=== PATIENT | male | born 1985 | race Hispanic/Latino ===

== ENCOUNTER → 2018-09-26 | Outpatient (CLI) | payer BC ==
[~2018-09-26] MED LIST: IOPAMIDOL 370 MG/ML 200 ML INFUS..BTL INJ ONE; SODIUM CHLORIDE 0.9% 50ML 50 ML ONE
--- NOTE | 2018-09-26 10:19 | Diagnostic Imaging Report ---
EXAM: CT ABDOMEN AND PELVIS with IV CONTRAST DATE: 09/26/2018 8:06 AM Time stamp on Exam: 8:49 AM INDICATION: Abdominal pain COMPARISON: None TECHNIQUE: The abdomen and pelvis were scanned using a multidetector helical scanner. Coronal and sagittal reformations were obtained. Routine protocol performed. Low-dose technique was utilized. IV Contrast: 100 cc of Isovue-370 Oral Contrast: Water Radiation Dose: Total DLP 323.01 mGy*cm Estimated effective dose: DLP x 0.015 x size factor FINDINGS: LOWER THORAX: No consolidations LIVER: Decreased attenuation of the liver compared to the plain compatible with fatty infiltration. No mass identified. BILIARY: The gallbladder is unremarkable. No ductal dilatation. SPLEEN: No masses PANCREAS: No masses ADRENALS: No nodules KIDNEYS: Symmetric perfusion. No enhancing masses. No hydronephrosis. GI TRACT: No distention, wall thickening or evidence of obstruction. The appendix is normal. VESSELS: Unremarkable PERITONEUM/RETROPERITONEUM: Small fat-containing right inguinal hernia with mild inflammatory stranding. No bowel contents within the hernia sac. LYMPH NODES: No lymphadenopathy REPRODUCTIVE ORGANS: Unremarkable BLADDER: Unremarkable SOFT TISSUES: Unremarkable BONES: No suspicious bone lesions. IMPRESSION: 1. Fatty infiltration of the liver without mass. 2. Small fat-containing right inguinal hernia with minimal stranding density. Signed by: Dr. Derrick Duff DO on 09/26/2018 10:16 AM
== END ==
LOC: CT 07:43
PROVIDERS: ATTEND Family Medicine
DX: K40.90 Unilateral inguinal hernia, without obstruction or gangrene, not specified as recurrent (principal)
CPT/HCPCS: 74177; Q9967

== ENCOUNTER → 2018-10-12 | Day surgery (SDC) | payer BC ==
[2018-10-11 13:03] LABS: BASOPHILS % 0.5 % (0.0-1.0); EOSINOPHILS # (AUTO) 0.1 (0.0-0.4); EOSINOPHILS % 1.5 % (0.0-6.0); HEMOGLOBIN 14.7 g/dL (14.0-18.0); LYMPHOCYTES # (AUTO) 1.7 (1.0-3.2); LYMPHOCYTES % 28.4 % (18.0-39.1); MEAN CORPUSCULAR HEMOGLOBIN 30.4 pg (28-32); MEAN CORPUSCULAR VOLUME 86.8 fL (81-99); MONOCYTES # (AUTO) 0.5 (0.2-0.8); MONOCYTES % 7.7 % (4.4-11.3); NEUTROPHILS # (AUTO) 3.8 (2.1-6.9); NEUTROPHILS % 61.6 % (38.7-80.0); PLATELET COUNT 175 x10e3/uL (140-360); RED BLOOD COUNT 4.84 x10e6/uL (4.3-5.7); RED CELL DISTRIBUTION WIDTH 12.2 % (11.7-14.4)
[2018-10-11 13:29] LABS: ANION GAP 11.8 mmol/L (8-16); BLOOD UREA NITROGEN 16 mg/dL (7-26); BUN/CREATININE RATIO 16 (6-25); CALCIUM 9.5 mg/dL (8.4-10.2); CARBON DIOXIDE 25 mmol/L (22-29); CHLORIDE 103 mmol/L (98-107); CREATININE, SERUM 1.03 mg/dL (0.72-1.25); EST GLOMERULAR FILTRATION RATE > 60 ML/MIN (60-); GLUCOSE 92 mg/dL (74-118); POTASSIUM 3.8 mmol/L (3.5-5.1); SODIUM 136 mmol/L (136-145)
[~2018-10-12] MED LIST changes: +BUPIVACAINE 0.25%/EPI 30ML SDV INJ ONE; +CEFAZOLIN SOD 1 GM VIAL ONE; +CEFAZOLIN SOD 1 GM/D5W 50ML 50 ML IV ONE; +DEXAMETHASONE SOD PHOS INJ 4 MG/ML VIAL ONE; +FENTANYL CITRATE/PF 100MCG/2 ML INJ ONE; -IOPAMIDOL 370 MG/ML 200 ML INFUS..BTL INJ ONE; +KETOROLAC TROMETHAMINE 30 MG/ML VIAL ONE; +LIDOCAINE HCL 2% LOCAL INJ 5 ML SDV VIAL INJ ONE; +MIDAZOLAM HCL 2 MG/2 ML VIAL ONE; +ONDANSETRON HCL INJ 2 MG/ML VIAL ONE; +PROPOFOL IV EMULSION 10 MG/ML 20 ML VIAL ONE; +SEVOFLURANE INHAL SOLN 250 ML PEN BTL ONE; -SODIUM CHLORIDE 0.9% 50ML 50 ML ONE
--- OUTSIDE RECORDS SUMMARY | 2018-10-12 06:57 | XMS REPORT ---
Author Author [facility] Organization [facility] Address Unknown Phone Unavailable Care Team Providers Care Staff Therapist Name Role Phone CRIS BELLE Unavailable Unavailable Problems This patient has no known problems. Allergies, Adverse Reactions, Alerts This patient has no known allergies or adverse reactions. Medications This patient has no known medications. Results Test Description Test Time Test Comments Text Results Atomic Results Result Comments CT ABDOMEN/PELVIS W 2018-09-26 10:06:00 [place] [address] Patient Name: ANTHONY HART MR #: [id number] : 1985 Age/Sex: 32/M Req #: [id number] Adm Physician: Ordered by: BARBRA KIRKLAND, CRIS Laboy MD Report #: [id number] Location: CT Room/Bed: Procedure: [id number] CT/CT ABDOMEN/PELVIS W Exam Date: Exam Time: REPORT STATUS: Signed EXAM: CT ABDOMEN AND PELVIS with IV CONTRAST DATE: 09/26/2018 8:06 AM Time stamp on Exam: 8:49 AM INDICATION: Abdominal pain COMPARISON: None TECHNIQUE: The abdomen and pelvis were scanned using a multidetector helical scanner. Coronal and sagittal reformations were obtained. Routine protocol performed. Low-dose technique was utilized. IV Contrast: 100 cc of Isovue-370 Oral Contrast: Water Radiation Dose: Total DLP 323.01 mGy*cm Estimated effective dose: DLP x 0.015 x size factor FINDINGS: LOWER THORAX: No consolidations LIVER: Decreased attenuation of the liver compared to the plain compatible with fatty infiltration. No mass identified. BILIARY: The gallbladder is unremarkable. No ductal dilatation. SPLEEN: No masses PANCREAS: No masses ADRENALS: No nodules KIDNEYS: Symmetric perfusion. No enhancing masses. No hydronephrosis. GI TRACT: No distention, wall thickening or evidence of obstruction. The appendix is normal. VESSELS: Unremarkable PERITONEUM/RETROPERITONEUM: Small fat-containing right inguinal hernia with mild inflammatory stranding. No bowel contents within the hernia sac. LYMPH NODES: No lymphadenopathy REPRODUCTIVE ORGANS: Unremarkable BLADDER: Unremarkable SOFT TISSUES: Unremarkable BONES: No suspicious bone lesions. IMPRESSION: 1. Fatty infiltration of the liver without mass. 2. Small fat-containing right inguinal hernia with minimal stranding density. Signed by: Dr. Valdo Duff DO on 09/26/2018 10:16 AM Dictated By: VALDO DUFF DO 1016 Transcribed By: MASON on 09/26/18 1016 COPY TO: CRIS BELLE
--- NOTE | 2018-10-12 10:04 | Operative Report ---
DATE OF PROCEDURE: October 12, 2018 PREOPERATIVE DIAGNOSIS: Right inguinal hernia. POSTOPERATIVE DIAGNOSIS: Right inguinal hernia. PROCEDURE PERFORMED: Repair of right inguinal hernia with Ultra Pro hernia system, oval type. ANESTHESIA: General. ESTIMATED BLOOD LOSS: Minimal. DRAINS: None. COMPLICATIONS: None. INDICATIONS AND FINDINGS: Patient is a 33-year-old male who noted a painful bulge at the groin after lifting at work. INTRAOPERATIVE FINDINGS: Direct hernia sac. No femoral herniation. Lipoma of the cord. DESCRIPTION OF PROCEDURE: With the patient lying on the operating table in the supine position and after administration of general endotracheal anesthesia, he was prepped and draped for repair of right inguinal hernia. Pre-emptive anesthesia was given as an incisional nerve block with 0.25% Marcaine with epinephrine. The dissection was carried down through the skin, subcutaneous tissue and Haider fascia until the external oblique aponeurosis was identified. This was incised along the course of the fibers transecting the external inguinal ring. Mid and lateral leads were developed. The cord was mobilized at the level of the pubic tubercle and retracted away from the operative field by a Haja drain. The cremaster veil was incised. The cord was exposed. An indirect hernia sac was highly ligated with 0 Vicryl suture ligatures. The lipoma of the cord was highly ligated with 2-0 Vicryl. Then the transversalis fascia was incised. Then a pocket was created to accommodate the mesh in the preperitoneal space. The Ultra Pro hernia system oval type was deployed in the preperitoneal space with the underlay part of the mesh over the direct space and the overlay part of the mesh over the inguinal canal floor. A slit was made to accommodate the cord. Then the mesh was secured to local tissues using a series of interrupted 2 Ethibond suture. The wound was irrigated. Bleeding points were cauterized. Then the wound was closed in layers using 2-0 Vicryl for the external oblique aponeurosis, 2-0 catgut for the soft tissues and the skin was closed with susan. Sterile dressing was applied. The patient tolerated the procedure well, and taken to the recovery room in stable condition. Job#: [id number]
[2018-10-12 10:31] VITALS: BP 112/69
== END | disposition home or self-care (01) ==
LOC: OR 06:55
PROVIDERS: ATTEND Surgery
DX: K40.90 Unilateral inguinal hernia, without obstruction or gangrene, not specified as recurrent (principal); D17.6 Benign lipomatous neoplasm of spermatic cord; Z01.812 Encounter for preprocedural laboratory examination
CPT/HCPCS: 36415; 49505; 80048; 85025; 88302; C1781; J0690 ×2; J1100; J1885; J2001; J2250; J2405; J2704; 88304